=== PATIENT | female | born 1955 | race Caucasian/White ===

== ENCOUNTER 2017-12-28 14:52 | Emergency (ER) | payer OTHER ==
[~2017-12-28] VITALS: Ht 160 cm; Wt 78.0 kg
--- NOTE | 2017-12-28 15:26 | NUR ---
62 years old female walk-in to er c/o left lower back pain after yard work, ambulatory with steady gait.
[2017-12-28] MEDS ORDERED: KETOROLAC TROMETHAMINE 60 MG INJ IM ONE ×2 (15:30→15:50)
--- NOTE | 2017-12-28 16:35 | NUR ---
Patient is sitting comfortably on chair, NAD-decreased pains expressed. Patient discharged to home in stable conditon. Written and verbal after care instructions given to patient. Patient verbalizes understanding of instructions.
== END 2017-12-28 16:37 | disposition home or self-care (01) ==
LOC: ER 14:54
DX: S39.012A Strain of muscle, fascia and tendon of lower back, initial encounter (principal); I10 Essential (primary) hypertension; X50.9XXA Other and unspecified overexertion or strenuous movements or postures, initial encounter; Y93.39 Activity, other involving climbing, rappelling and jumping off; Y92.89 Other specified places as the place of occurrence of the external cause; Y99.8 Other external cause status
CPT/HCPCS: 96372; 99283; A4663; J1885